=== PATIENT | female | born 1935 | race Caucasian/White ===

== ENCOUNTER 2022-10-20 12:20 | Emergency (ER) | payer MEDICARE, OTHER ==
[2022-10-20] MEDS ORDERED: Sodium Chloride 0.9% 10 ML Syringe FLUSH PRN (12:26)
[2022-10-20 12:59] LABS: BASOPHILS ABSOLUTE AUTO 0.02 K/uL (0.00-0.20); BASOPHILS PERCENT AUTO 0.2 % (0.0-2.0); EOSINOPHILS ABSOLUTE AUTO 0.05 K/uL (0.00-0.50); EOSINOPHILS PERCENT AUTO 0.4 % (0.0-5.0); HEMATOCRIT 44.4 % (34.0-46.0); HEMOGLOBIN 14.8 g/dL (11.7-15.5); LYMPHOCYTES PERCENT AUTO 9.5 % (10.0-50.0); MEAN CORPUSCULAR HEMOGLOBIN 31.2 pg (28.2-33.3); MEAN CORPUSCULAR HGB CONC 33.3 g/dL (31.7-36.0); MEAN CORPUSCULAR VOLUME 93.5 fL (84.0-98.0); MONOCYTES ABSOLUTE AUTO 0.61 K/uL (0.00-1.00); MONOCYTES PERCENT AUTO 5.3 % (2.0-14.0); NEUTROPHILS ABSOLUTE AUTO 9.79 K/uL (1.40-7.00); NEUTROPHILS PERCENT AUTO 84.6 % (45.0-80.0); PLATELET COUNT,PLT 307 K/uL (150-350); RED BLOOD CELL COUNT 4.75 M/uL (3.77-5.09); RED CELL DISTRIBUTION WIDTH 13.7 % (11.2-14.1); WHITE BLOOD CELL COUNT,WBC 11.6 K/uL (4.0-10.2)
[2022-10-20 13:41] LABS: ALANINE AMINOTRANSFERASE,ALT 9 U/L (12-78); ALBUMIN 4.4 g/dL (3.4-5.0); ALKALINE PHOSPHATASE 152 IU/L (46-116); ANION GAP 16.3 meq/L (7-15); ASPARTATE AMNIOTRANSFERASE,AST 16 U/L (15-37); BILIRUBIN TOTAL 0.5 mg/dL (0.2-1.0); BLOOD UREA NITROGEN,BUN 17 mg/dL (7-18); CALCIUM 9.9 mg/dL (8.5-10.1); CARBON DIOXIDE,CO2 22.7 mmol/L (21.0-32.0); CHLORIDE,CL 100 mmol/L (98-107); CREATININE 0.96 mg/dL (0.51-1.17); ESTIMATED GFR 57 mL/min (>=60); GLUCOSE RANDOM 123 mg/dL (70-99); MAGNESIUM 1.8 mg/dL (1.8-2.4); PRO B-TYPE NATRIUR PEPT,BNPPRO 282 pg/mL (0-125); PROTEIN TOTAL,TP 9.4 g/dL (6.4-8.2); SODIUM,NA 139 mmol/L (136-145)
[2022-10-20 14:41] LABS: APPEARANCE,URINE SLIGHTLY CLOUDY; BILIRUBIN,URINE NEGATIVE (NEGATIVE); COLOR,URINE YELLOW; GLUCOSE,URINE NEGATIVE (NEGATIVE); KETONES,URINE TRACE mg/dL (NEGATIVE); LEUKOCYTE ESTERASE,URINE MODERATE (NEGATIVE); NITRITE,URINE POSITIVE (NEGATIVE); OCCULT BLOOD,URINE TRACE-LYSED (NEGATIVE); PH,URINE 6.5 (5.0-9.0); PROTEIN,URINE TRACE mg/dL (NEGATIVE); UROBILINOGEN,URINE 0.2 E.U./dL (0.2-1.0)
[2022-10-20 14:43] LABS: BACTERIA,URINE MANY /HPF (NONE TO FEW); EPITHELIAL CELLS,URINE OCCASIONAL /LPF; MUCUS,URINE NOT SEEN /LPF (NEGATIVE); RBC,URINE 0-5 /HPF; WBC,URINE 50-75 /HPF
[2022-10-20] MEDS: cefTRIAXone 1 GM in Sodium Chloride 0.9% 100 ML IV ONE (15:00)
[2022-10-20] MEDS: Take Home: Nitrofurantoin Monohydrate/Macrocrystalline 100 MG, 6 Cap Pack PO ONE (15:09)
[2022-10-20 16:15] VITALS: BP 158/79; PULSE 92
== END 2022-10-20 15:40 ==
LOC: LL.ED 12:20
DX: R53.1 Weakness (principal); N30.01 Acute cystitis with hematuria
CPT/HCPCS: 36415; 70450; 71045; 80053; 81001; 81003; 83605; 83735; 83880; 84484; 85025; 85379; 87086; 87088; 87186; 93005; 93010; 96365; 99284; 99285-25; A9270-GY; J0696; J3490

== ENCOUNTER 2022-10-22 17:24 | Emergency (ER) | payer MEDICARE, OTHER ==
[2022-10-22 17:49] LABS: BASOPHILS ABSOLUTE AUTO 0.02 K/uL (0.00-0.20); BASOPHILS PERCENT AUTO 0.2 % (0.0-2.0); EOSINOPHILS PERCENT AUTO 0.8 % (0.0-5.0); HEMATOCRIT 39.4 % (34.0-46.0); HEMOGLOBIN 13.2 g/dL (11.7-15.5); LYMPHOCYTES ABSOLUTE AUTO 2.03 K/uL (0.50-3.50); LYMPHOCYTES PERCENT AUTO 16.5 % (10.0-50.0); MEAN CORPUSCULAR HEMOGLOBIN 30.8 pg (28.2-33.3); MEAN CORPUSCULAR HGB CONC 33.5 g/dL (31.7-36.0); MEAN CORPUSCULAR VOLUME 92.1 fL (84.0-98.0); MONOCYTES ABSOLUTE AUTO 0.79 K/uL (0.00-1.00); MONOCYTES PERCENT AUTO 6.4 % (2.0-14.0); NEUTROPHILS PERCENT AUTO 76.1 % (45.0-80.0); PLATELET COUNT,PLT 301 K/uL (150-350); RED BLOOD CELL COUNT 4.28 M/uL (3.77-5.09); RED CELL DISTRIBUTION WIDTH 13.6 % (11.2-14.1); WHITE BLOOD CELL COUNT,WBC 12.3 K/uL (4.0-10.2)
[2022-10-22 18:00] LABS: PTT,PARTIAL THROMBOPLSTIN TIME 26.3 SEC (23.6-29.8)
[2022-10-22 18:05] LABS: ANION GAP 14.1 meq/L (7-15); BLOOD UREA NITROGEN,BUN 17 mg/dL (7-18); CALCIUM 9.3 mg/dL (8.5-10.1); CARBON DIOXIDE,CO2 21.9 mmol/L (21.0-32.0); CHLORIDE,CL 104 mmol/L (98-107); GLUCOSE RANDOM 92 mg/dL (70-99); POTASSIUM,K 3.7 mmol/L (3.5-5.1); SODIUM,NA 140 mmol/L (136-145)
[2022-10-22 18:06] LABS: ESTIMATED GFR 71 mL/min (>=60)
[2022-10-22 20:55] VITALS: BP 138/92; PULSE 90
== END 2022-10-22 18:25 ==
LOC: LL.ED 17:24
DX: R53.1 Weakness (principal)
CPT/HCPCS: 36415; 70450; 80048; 84484; 85025; 85610; 85730; 99284; 99285

== ENCOUNTER 2022-10-29 09:24 | Inpatient (IN) | payer MEDICARE ==
[2022-10-29] MEDS ORDERED: Diclofenac Sodium 1% Gel 100 GM Tube TOP PRN (15:24)
[2022-10-29] MEDS: atorvaSTATin 40 MG Tab PO SCH (21:11)
[2022-10-29] MEDS: Melatonin 3 MG Tab PO SCH (21:12)
[2022-10-29] MEDS: Acetaminophen 325 MG Tab PO PRN (21:12)
[2022-10-30] MEDS: Cholecalciferol (Vitamin D3) 10 MCG Tab PO SCH (07:30)
[2022-10-30] MEDS: Magnesium Chloride 64 MG Tab.ER PO SCH (07:30)
[2022-10-30] MEDS: Clopidogrel 75 MG Tab PO SCH (07:30)
[2022-10-30] MEDS: Levothyroxine 50 MCG Tab PO SCH (07:30)
[2022-10-30] MEDS: Aspirin 81 MG Tab.EC PO SCH (07:30)
[2022-10-30] MEDS: Losartan 50 MG Tab PO SCH (07:30)
[2022-10-30] MEDS: Acetaminophen 325 MG Tab PO PRN (16:44)
[2022-10-30] MEDS: Melatonin 3 MG Tab PO SCH (20:31)
[2022-10-30] MEDS: atorvaSTATin 40 MG Tab PO SCH (20:31)
[2022-10-31] MEDS: Acetaminophen 325 MG Tab PO PRN ×3 (01:17→21:03)
[2022-10-31] MEDS: Clopidogrel 75 MG Tab PO SCH (07:07)
[2022-10-31] MEDS: Levothyroxine 50 MCG Tab PO SCH (07:07)
[2022-10-31] MEDS: Cholecalciferol (Vitamin D3) 10 MCG Tab PO SCH (07:08)
[2022-10-31] MEDS: Losartan 50 MG Tab PO SCH (07:08)
[2022-10-31] MEDS: Aspirin 81 MG Tab.EC PO SCH (07:09)
[2022-10-31] MEDS: Magnesium Chloride 64 MG Tab.ER PO SCH (07:09)
[2022-10-31] MEDS: atorvaSTATin 40 MG Tab PO SCH (21:03)
[2022-10-31] MEDS: Melatonin 3 MG Tab PO SCH (21:03)
[2022-11-01] MEDS: Levothyroxine 50 MCG Tab PO SCH (08:24)
[2022-11-01] MEDS: Magnesium Chloride 64 MG Tab.ER PO SCH (08:24)
[2022-11-01] MEDS: Acetaminophen 325 MG Tab PO PRN ×2 (08:25→20:56)
[2022-11-01] MEDS: Clopidogrel 75 MG Tab PO SCH (08:25)
[2022-11-01] MEDS: Aspirin 81 MG Tab.EC PO SCH (08:25)
[2022-11-01] MEDS: Cholecalciferol (Vitamin D3) 10 MCG Tab PO SCH (08:25)
[2022-11-01] MEDS: Losartan 50 MG Tab PO SCH (08:26)
[2022-11-01] MEDS: Melatonin 3 MG Tab PO SCH (20:56)
[2022-11-01] MEDS: atorvaSTATin 40 MG Tab PO SCH (20:56)
[2022-11-02] MEDS: Acetaminophen 325 MG Tab PO PRN ×2 (02:41→10:07)
[2022-11-02] MEDS: Magnesium Chloride 64 MG Tab.ER PO SCH (07:22)
[2022-11-02] MEDS: Aspirin 81 MG Tab.EC PO SCH (07:22)
[2022-11-02] MEDS: Levothyroxine 50 MCG Tab PO SCH (07:22)
[2022-11-02] MEDS: Losartan 50 MG Tab PO SCH (07:22)
[2022-11-02] MEDS: Clopidogrel 75 MG Tab PO SCH (07:23)
[2022-11-02] MEDS: Cholecalciferol (Vitamin D3) 10 MCG Tab PO SCH (07:23)
[2022-11-02 07:24] VITALS: BP 145/89; PULSE 81
== END 2022-11-02 12:20 | disposition home health service (06) | DRG 57 ==
LOC: LL.MS 11:22
PROVIDERS: ADMIT Emergency Medicine; ATTEND Physician Assistant
DX: I69.354 Hemiplegia and hemiparesis following cerebral infarction affecting left non-dominant side (principal); E78.00 Pure hypercholesterolemia, unspecified; I10 Essential (primary) hypertension; M19.90 Unspecified osteoarthritis, unspecified site; E03.9 Hypothyroidism, unspecified; E83.42 Hypomagnesemia; Z66 Do not resuscitate; Z79.82 Long term (current) use of aspirin; Z79.899 Other long term (current) drug therapy
CPT/HCPCS: 97110-GO; 97110-GP; 97112-GP; 97116-GP; 97161-GP; 97165-GO; 97535-GO; A9270-GY

== ENCOUNTER 2023-07-08 10:10 | Inpatient (IN) | payer MEDICARE, OTHER ==
[2023-07-08] MEDS ORDERED: Melatonin [Melatonin] 5 MG Tablet PO SCH (20:00)
[2023-07-08] MEDS: Melatonin 3 MG Tab ONE (20:52)
[2023-07-09] MEDS: Acetaminophen 500 MG Tab PO PRN (03:48)
[2023-07-09] MEDS: Levothyroxine 50 MCG Tab PO SCH (07:04)
[2023-07-09] MEDS: Magnesium Oxide 400 MG Tab PO SCH (07:28)
[2023-07-09] MEDS: Amoxicillin/Clavulanate K 875-125 MG Tab PO SCH (07:28)
[2023-07-09] MEDS: Aspirin 81 MG Tab.EC PO SCH (07:28)
[2023-07-09] MEDS: Omeprazole 20 MG Cap.CR PO SCH (07:28)
[2023-07-09] MEDS: Clopidogrel 75 MG Tab PO SCH (07:28)
[2023-07-09] MEDS: Losartan 50 MG Tab PO SCH (07:29)
[2023-07-09 07:32] LABS: BASOPHILS ABSOLUTE AUTO 0.02 K/uL (0.00-0.20); BASOPHILS PERCENT AUTO 0.1 % (0.0-2.0); EOSINOPHILS ABSOLUTE AUTO 0.31 K/uL (0.00-0.50); EOSINOPHILS PERCENT AUTO 1.7 % (0.0-5.0); HEMATOCRIT 32.7 % (34.0-46.0); HEMOGLOBIN 10.7 g/dL (11.7-15.5); LYMPHOCYTES ABSOLUTE AUTO 1.94 K/uL (0.50-3.50); LYMPHOCYTES PERCENT AUTO 10.7 % (10.0-50.0); MEAN CORPUSCULAR HEMOGLOBIN 28.8 pg (28.2-33.3); MEAN CORPUSCULAR HGB CONC 32.7 g/dL (31.7-36.0); MEAN CORPUSCULAR VOLUME 88.1 fL (84.0-98.0); MONOCYTES ABSOLUTE AUTO 1.17 K/uL (0.00-1.00); MONOCYTES PERCENT AUTO 6.4 % (2.0-14.0); NEUTROPHILS ABSOLUTE AUTO 14.73 K/uL (1.40-7.00); NEUTROPHILS PERCENT AUTO 81.1 % (45.0-80.0); PLATELET COUNT,PLT 301 K/uL (150-350); RED BLOOD CELL COUNT 3.71 M/uL (3.77-5.09); RED CELL DISTRIBUTION WIDTH 16.7 % (11.2-14.1); WHITE BLOOD CELL COUNT,WBC 18.2 K/uL (4.0-10.2)
[2023-07-09] MEDS: Melatonin 3 MG Tab PO SCH (19:53)
[2023-07-10 07:25] LABS: BASOPHILS ABSOLUTE AUTO 0.02 K/uL (0.00-0.20); BASOPHILS PERCENT AUTO 0.1 % (0.0-2.0); EOSINOPHILS ABSOLUTE AUTO 0.27 K/uL (0.00-0.50); EOSINOPHILS PERCENT AUTO 1.7 % (0.0-5.0); HEMATOCRIT 32.8 % (34.0-46.0); HEMOGLOBIN 10.7 g/dL (11.7-15.5); LYMPHOCYTES ABSOLUTE AUTO 1.68 K/uL (0.50-3.50); LYMPHOCYTES PERCENT AUTO 10.7 % (10.0-50.0); MEAN CORPUSCULAR HEMOGLOBIN 28.6 pg (28.2-33.3); MEAN CORPUSCULAR HGB CONC 32.6 g/dL (31.7-36.0); MEAN CORPUSCULAR VOLUME 87.7 fL (84.0-98.0); MONOCYTES ABSOLUTE AUTO 1.03 K/uL (0.00-1.00); MONOCYTES PERCENT AUTO 6.6 % (2.0-14.0); NEUTROPHILS ABSOLUTE AUTO 12.69 K/uL (1.40-7.00); NEUTROPHILS PERCENT AUTO 80.9 % (45.0-80.0); PLATELET COUNT,PLT 396 K/uL (150-350); RED BLOOD CELL COUNT 3.74 M/uL (3.77-5.09); RED CELL DISTRIBUTION WIDTH 16.2 % (11.2-14.1); WHITE BLOOD CELL COUNT,WBC 15.7 K/uL (4.0-10.2)
[2023-07-10 09:03] LABS: APPEARANCE,URINE SLIGHTLY CLOUDY; BILIRUBIN,URINE NEGATIVE (NEGATIVE); COLOR,URINE YELLOW; GLUCOSE,URINE NEGATIVE (NEGATIVE); KETONES,URINE NEGATIVE (NEGATIVE); LEUKOCYTE ESTERASE,URINE NEGATIVE (NEGATIVE); NITRITE,URINE NEGATIVE (NEGATIVE); OCCULT BLOOD,URINE TRACE-LYSED (NEGATIVE); PROTEIN,URINE 30 mg/dL (NEGATIVE); UROBILINOGEN,URINE 0.2 E.U./dL (0.2-1.0)
[2023-07-10 09:04] LABS: EPITHELIAL CELLS,URINE FEW /LPF; RBC,URINE 0-5 /HPF; WBC,URINE 0-5 /HPF
[2023-07-10 09:05] LABS: BACTERIA,URINE FEW /HPF (NONE TO FEW)
[2023-07-11 07:22] LABS: BASOPHILS ABSOLUTE AUTO 0.02 K/uL (0.00-0.20); BASOPHILS PERCENT AUTO 0.1 % (0.0-2.0); EOSINOPHILS ABSOLUTE AUTO 0.21 K/uL (0.00-0.50); EOSINOPHILS PERCENT AUTO 1.3 % (0.0-5.0); HEMATOCRIT 30.5 % (34.0-46.0); HEMOGLOBIN 9.9 g/dL (11.7-15.5); LYMPHOCYTES ABSOLUTE AUTO 1.21 K/uL (0.50-3.50); LYMPHOCYTES PERCENT AUTO 7.4 % (10.0-50.0); MEAN CORPUSCULAR HEMOGLOBIN 28.5 pg (28.2-33.3); MEAN CORPUSCULAR HGB CONC 32.5 g/dL (31.7-36.0); MEAN CORPUSCULAR VOLUME 87.9 fL (84.0-98.0); MONOCYTES ABSOLUTE AUTO 1.29 K/uL (0.00-1.00); MONOCYTES PERCENT AUTO 7.9 % (2.0-14.0); NEUTROPHILS ABSOLUTE AUTO 13.58 K/uL (1.40-7.00); NEUTROPHILS PERCENT AUTO 83.3 % (45.0-80.0); PLATELET COUNT,PLT 452 K/uL (150-350); RED BLOOD CELL COUNT 3.47 M/uL (3.77-5.09); WHITE BLOOD CELL COUNT,WBC 16.3 K/uL (4.0-10.2)
[2023-07-11] MEDS: Diclofenac Sodium 1% Gel 100 GM Tube TOP PRN (18:22)
[2023-07-12 07:35] LABS: BASOPHILS ABSOLUTE AUTO 0.03 K/uL (0.00-0.20); BASOPHILS PERCENT AUTO 0.2 % (0.0-2.0); EOSINOPHILS ABSOLUTE AUTO 0.13 K/uL (0.00-0.50); EOSINOPHILS PERCENT AUTO 0.9 % (0.0-5.0); HEMATOCRIT 28.3 % (34.0-46.0); HEMOGLOBIN 9.2 g/dL (11.7-15.5); LYMPHOCYTES ABSOLUTE AUTO 1.42 K/uL (0.50-3.50); LYMPHOCYTES PERCENT AUTO 9.7 % (10.0-50.0); MEAN CORPUSCULAR HEMOGLOBIN 28.5 pg (28.2-33.3); MEAN CORPUSCULAR HGB CONC 32.5 g/dL (31.7-36.0); MEAN CORPUSCULAR VOLUME 87.6 fL (84.0-98.0); MONOCYTES ABSOLUTE AUTO 1.38 K/uL (0.00-1.00); MONOCYTES PERCENT AUTO 9.4 % (2.0-14.0); NEUTROPHILS ABSOLUTE AUTO 11.73 K/uL (1.40-7.00); NEUTROPHILS PERCENT AUTO 79.8 % (45.0-80.0); PLATELET COUNT,PLT 493 K/uL (150-350); RED BLOOD CELL COUNT 3.23 M/uL (3.77-5.09); RED CELL DISTRIBUTION WIDTH 15.9 % (11.2-14.1); WHITE BLOOD CELL COUNT,WBC 14.7 K/uL (4.0-10.2)
[2023-07-13 07:39] LABS: APPEARANCE,URINE SLIGHTLY CLOUDY; BILIRUBIN,URINE NEGATIVE (NEGATIVE); COLOR,URINE YELLOW; GLUCOSE,URINE NEGATIVE (NEGATIVE); KETONES,URINE NEGATIVE (NEGATIVE); LEUKOCYTE ESTERASE,URINE SMALL (NEGATIVE); NITRITE,URINE NEGATIVE (NEGATIVE); OCCULT BLOOD,URINE LARGE (NEGATIVE); PROTEIN,URINE 30 mg/dL (NEGATIVE); UROBILINOGEN,URINE 0.2 E.U./dL (0.2-1.0)
[2023-07-13 08:13] LABS: BASOPHILS ABSOLUTE AUTO 0.04 K/uL (0.00-0.20); BASOPHILS PERCENT AUTO 0.3 % (0.0-2.0); EOSINOPHILS ABSOLUTE AUTO 0.17 K/uL (0.00-0.50); EOSINOPHILS PERCENT AUTO 1.2 % (0.0-5.0); HEMATOCRIT 30.5 % (34.0-46.0); HEMOGLOBIN 9.9 g/dL (11.7-15.5); LYMPHOCYTES ABSOLUTE AUTO 1.55 K/uL (0.50-3.50); LYMPHOCYTES PERCENT AUTO 10.6 % (10.0-50.0); MEAN CORPUSCULAR HEMOGLOBIN 28.4 pg (28.2-33.3); MEAN CORPUSCULAR HGB CONC 32.5 g/dL (31.7-36.0); MEAN CORPUSCULAR VOLUME 87.4 fL (84.0-98.0); MONOCYTES ABSOLUTE AUTO 1.19 K/uL (0.00-1.00); MONOCYTES PERCENT AUTO 8.1 % (2.0-14.0); NEUTROPHILS ABSOLUTE AUTO 11.69 K/uL (1.40-7.00); NEUTROPHILS PERCENT AUTO 79.8 % (45.0-80.0); PLATELET COUNT,PLT 690 K/uL (150-350); RED BLOOD CELL COUNT 3.49 M/uL (3.77-5.09); RED CELL DISTRIBUTION WIDTH 15.9 % (11.2-14.1); WHITE BLOOD CELL COUNT,WBC 14.6 K/uL (4.0-10.2)
[2023-07-13 08:28] LABS: BACTERIA,URINE FEW /HPF (NONE TO FEW); EPITHELIAL CELLS,URINE FEW /LPF; RBC,URINE 0-5 /HPF; WBC,URINE 20-30 /HPF
[2023-07-13 08:33] LABS: ALBUMIN 2.3 g/dL (3.4-5.0); ANION GAP 14.1 meq/L (7-15); BILIRUBIN TOTAL 0.4 mg/dL (0.2-1.0); CALCIUM 8.3 mg/dL (8.5-10.1); CARBON DIOXIDE,CO2 22.9 mmol/L (21.0-32.0); CREATININE 0.68 mg/dL (0.51-1.17); EST CRCL DRUG DOSING (CG) 41.87 mL/min; PROTEIN TOTAL,TP 6.2 g/dL (6.4-8.2)
[2023-07-13] MEDS: Potassium Bicarbonate/Cit Ac 20 MEQ Effervescent Tab PO ONE ×2 (09:12→10:38)
[2023-07-13 11:11] LABS: MAGNESIUM 1.6 mg/dL (1.8-2.4); POTASSIUM,K 3.6 mmol/L (3.5-5.1)
[2023-07-14 08:02] LABS: BASOPHILS ABSOLUTE AUTO 0.02 K/uL (0.00-0.20); BASOPHILS PERCENT AUTO 0.2 % (0.0-2.0); EOSINOPHILS ABSOLUTE AUTO 0.18 K/uL (0.00-0.50); EOSINOPHILS PERCENT AUTO 1.5 % (0.0-5.0); HEMATOCRIT 28.3 % (34.0-46.0); HEMOGLOBIN 9.1 g/dL (11.7-15.5); LYMPHOCYTES PERCENT AUTO 9.7 % (10.0-50.0); MEAN CORPUSCULAR HEMOGLOBIN 28.3 pg (28.2-33.3); MEAN CORPUSCULAR HGB CONC 32.2 g/dL (31.7-36.0); MEAN CORPUSCULAR VOLUME 88.2 fL (84.0-98.0); MONOCYTES ABSOLUTE AUTO 0.97 K/uL (0.00-1.00); MONOCYTES PERCENT AUTO 7.9 % (2.0-14.0); NEUTROPHILS ABSOLUTE AUTO 9.94 K/uL (1.40-7.00); NEUTROPHILS PERCENT AUTO 80.7 % (45.0-80.0); PLATELET COUNT,PLT 700 K/uL (150-350); RED BLOOD CELL COUNT 3.21 M/uL (3.77-5.09); RED CELL DISTRIBUTION WIDTH 15.8 % (11.2-14.1); WHITE BLOOD CELL COUNT,WBC 12.3 K/uL (4.0-10.2)
[2023-07-14 08:27] LABS: ALBUMIN 2.1 g/dL (3.4-5.0); BILIRUBIN TOTAL 0.3 mg/dL (0.2-1.0); CALCIUM 8.2 mg/dL (8.5-10.1); CARBON DIOXIDE,CO2 24.9 mmol/L (21.0-32.0); CREATININE 0.63 mg/dL (0.51-1.17); EST CRCL DRUG DOSING (CG) 45.19 mL/min; POTASSIUM,K 3.3 mmol/L (3.5-5.1); PROTEIN TOTAL,TP 5.8 g/dL (6.4-8.2)
[2023-07-14 08:31] LABS: ANION GAP 12.4 meq/L (7-15)
[2023-07-14] MEDS: Magnesium Oxide 400 MG Tab PO ONE (14:12)
[2023-07-14] MEDS: Potassium Bicarbonate/Cit Ac 20 MEQ Effervescent Tab PO ONE ×2 (14:12→20:22)
[2023-07-14] MEDS: Magnesium Oxide 400 MG Tab PO SCH (19:15)
[2023-07-15 07:36] LABS: BASOPHILS ABSOLUTE AUTO 0.03 K/uL (0.00-0.20); BASOPHILS PERCENT AUTO 0.2 % (0.0-2.0); EOSINOPHILS ABSOLUTE AUTO 0.19 K/uL (0.00-0.50); EOSINOPHILS PERCENT AUTO 1.4 % (0.0-5.0); HEMOGLOBIN 10.5 g/dL (11.7-15.5); LYMPHOCYTES ABSOLUTE AUTO 2.11 K/uL (0.50-3.50); LYMPHOCYTES PERCENT AUTO 15.1 % (10.0-50.0); MEAN CORPUSCULAR HEMOGLOBIN 28.2 pg (28.2-33.3); MEAN CORPUSCULAR HGB CONC 31.8 g/dL (31.7-36.0); MEAN CORPUSCULAR VOLUME 88.7 fL (84.0-98.0); MONOCYTES ABSOLUTE AUTO 0.99 K/uL (0.00-1.00); MONOCYTES PERCENT AUTO 7.1 % (2.0-14.0); NEUTROPHILS ABSOLUTE AUTO 10.66 K/uL (1.40-7.00); NEUTROPHILS PERCENT AUTO 76.2 % (45.0-80.0); PLATELET COUNT,PLT 907 K/uL (150-350); RED BLOOD CELL COUNT 3.72 M/uL (3.77-5.09)
[2023-07-15 07:55] LABS: ALBUMIN 2.6 g/dL (3.4-5.0); ANION GAP 8.5 meq/L (7-15); BILIRUBIN TOTAL 0.4 mg/dL (0.2-1.0); CALCIUM 8.7 mg/dL (8.5-10.1); CARBON DIOXIDE,CO2 25.5 mmol/L (21.0-32.0); CREATININE 0.71 mg/dL (0.51-1.17); EST CRCL DRUG DOSING (CG) 39.09 mL/min; POTASSIUM,K 4.4 mmol/L (3.5-5.1); PROTEIN TOTAL,TP 6.7 g/dL (6.4-8.2)
[2023-07-15] MEDS: cefTRIAXone 1 GM Vial IM ONE (14:08)
[2023-07-15] MEDS: Magnesium Oxide 400 MG Tab PO ONE (14:09)
[2023-07-15] MEDS: Lidocaine 1% 5 ML VIAL ONE (14:22)
[2023-07-16 08:05] VITALS: BP 148/87; PULSE 98
[2023-07-16 09:19] LABS: BASOPHILS ABSOLUTE AUTO 0.03 K/uL (0.00-0.20); BASOPHILS PERCENT AUTO 0.2 % (0.0-2.0); EOSINOPHILS ABSOLUTE AUTO 0.24 K/uL (0.00-0.50); EOSINOPHILS PERCENT AUTO 1.7 % (0.0-5.0); HEMATOCRIT 33.2 % (34.0-46.0); HEMOGLOBIN 10.6 g/dL (11.7-15.5); LYMPHOCYTES ABSOLUTE AUTO 2.18 K/uL (0.50-3.50); LYMPHOCYTES PERCENT AUTO 15.8 % (10.0-50.0); MEAN CORPUSCULAR HEMOGLOBIN 28.7 pg (28.2-33.3); MEAN CORPUSCULAR HGB CONC 31.9 g/dL (31.7-36.0); MONOCYTES ABSOLUTE AUTO 1.08 K/uL (0.00-1.00); MONOCYTES PERCENT AUTO 7.8 % (2.0-14.0); NEUTROPHILS ABSOLUTE AUTO 10.24 K/uL (1.40-7.00); NEUTROPHILS PERCENT AUTO 74.5 % (45.0-80.0); PLATELET COUNT,PLT 996 K/uL (150-350); RED BLOOD CELL COUNT 3.69 M/uL (3.77-5.09); WHITE BLOOD CELL COUNT,WBC 13.8 K/uL (4.0-10.2)
[2023-07-16 09:37] LABS: ALBUMIN 2.6 g/dL (3.4-5.0); ANION GAP 11.7 meq/L (7-15); BILIRUBIN TOTAL 0.3 mg/dL (0.2-1.0); CALCIUM 8.3 mg/dL (8.5-10.1); CARBON DIOXIDE,CO2 24.3 mmol/L (21.0-32.0); CREATININE 0.83 mg/dL (0.51-1.17); EST CRCL DRUG DOSING (CG) 33.44 mL/min; POTASSIUM,K 3.8 mmol/L (3.5-5.1); PROTEIN TOTAL,TP 6.8 g/dL (6.4-8.2)
[2023-07-16] MEDS ORDERED: Magnesium Oxide 400 MG Tab ONE (12:06)
[2023-07-16] MEDS: Magnesium Oxide 400 MG Tab PO SCH (12:21)
[2023-07-16 12:45] LABS: APPEARANCE,URINE SLIGHTLY CLOUDY; BILIRUBIN,URINE NEGATIVE (NEGATIVE); COLOR,URINE DARK YELLOW; GLUCOSE,URINE NEGATIVE (NEGATIVE); KETONES,URINE NEGATIVE (NEGATIVE); LEUKOCYTE ESTERASE,URINE SMALL (NEGATIVE); NITRITE,URINE NEGATIVE (NEGATIVE); OCCULT BLOOD,URINE LARGE (NEGATIVE); PH,URINE 7.5 (5.0-9.0); PROTEIN,URINE 30 mg/dL (NEGATIVE); UROBILINOGEN,URINE 0.2 E.U./dL (0.2-1.0)
[2023-07-16 12:46] LABS: BACTERIA,URINE FEW /HPF (NONE TO FEW)
[2023-07-16] MEDS: cefTRIAXone 1 GM Vial IM ONE (14:41)
[2023-07-16] MEDS: Lidocaine 1% 5 ML VIAL INJECT ONE (14:41)
== END 2023-07-16 15:10 | disposition home or self-care (01) | DRG 948 ==
LOC: LL.MS 17:30
PROVIDERS: ADMIT Physician Assistant; ATTEND Emergency Medicine
DX: R53.81 Other malaise (principal); E87.6 Hypokalemia; E83.42 Hypomagnesemia; D72.829 Elevated white blood cell count, unspecified; E03.9 Hypothyroidism, unspecified; M19.90 Unspecified osteoarthritis, unspecified site; E78.00 Pure hypercholesterolemia, unspecified; I10 Essential (primary) hypertension; H54.7 Unspecified visual loss; Z93.3 Colostomy status; Z96.649 Presence of unspecified artificial hip joint; Z79.82 Long term (current) use of aspirin; Z79.02 Long term (current) use of antithrombotics/antiplatelets; Z79.2 Long term (current) use of antibiotics; Z79.899 Other long term (current) drug therapy; Z90.89 Acquired absence of other organs; Z86.73 Personal history of transient ischemic attack (TIA), and cerebral infarction without residual deficits; Z98.890 Other specified postprocedural states; Z90.710 Acquired absence of both cervix and uterus
CPT/HCPCS: 36415; 80053; 81001; 83735; 84132; 85025; 87086; 97110-GP; 97162-GP; 97165-GO; 97530-GP; 97535-GO; 99306; 99315; A9270-GY; J0696; J3490

== ENCOUNTER 2023-07-28 09:09 | Emergency (ER) | payer MEDICARE, OTHER ==
[2023-07-28 10:05] LABS: ALBUMIN 2.8 g/dL (3.4-5.0); ANION GAP 9.8 meq/L (7-15); BILIRUBIN TOTAL 0.3 mg/dL (0.2-1.0); CALCIUM 8.7 mg/dL (8.5-10.1); CARBON DIOXIDE,CO2 27.3 mmol/L (21.0-32.0); CREATININE 0.79 mg/dL (0.51-1.17); EST CRCL DRUG DOSING (CG) 36.04 mL/min; POTASSIUM,K 3.1 mmol/L (3.5-5.1); PROTEIN TOTAL,TP 6.3 g/dL (6.4-8.2)
[2023-07-28 10:13] LABS: BASOPHILS ABSOLUTE AUTO 0.02 K/uL (0.00-0.20); BASOPHILS PERCENT AUTO 0.2 % (0.0-2.0); EOSINOPHILS ABSOLUTE AUTO 0.37 K/uL (0.00-0.50); EOSINOPHILS PERCENT AUTO 3.7 % (0.0-5.0); HEMOGLOBIN 8.9 g/dL (11.7-15.5); LYMPHOCYTES ABSOLUTE AUTO 1.74 K/uL (0.50-3.50); LYMPHOCYTES PERCENT AUTO 17.4 % (10.0-50.0); MEAN CORPUSCULAR HEMOGLOBIN 29.3 pg (28.2-33.3); MEAN CORPUSCULAR HGB CONC 31.8 g/dL (31.7-36.0); MEAN CORPUSCULAR VOLUME 92.1 fL (84.0-98.0); MONOCYTES ABSOLUTE AUTO 0.96 K/uL (0.00-1.00); MONOCYTES PERCENT AUTO 9.6 % (2.0-14.0); NEUTROPHILS PERCENT AUTO 69.1 % (45.0-80.0); PLATELET COUNT,PLT 372 K/uL (150-350); RED BLOOD CELL COUNT 3.04 M/uL (3.77-5.09); RED CELL DISTRIBUTION WIDTH 17.7 % (11.2-14.1)
[2023-07-28 10:46] VITALS: BP 162/85; PULSE 68
[2023-07-28] MEDS: Potassium Bicarbonate/Cit Ac 20 MEQ Effervescent Tab PO ONE (10:47)
== END 2023-07-28 11:44 | disposition home or self-care (01) ==
LOC: LL.ED 09:09
DX: L24.B1 Irritant contact dermatitis related to digestive stoma or fistula (principal); E87.6 Hypokalemia; I10 Essential (primary) hypertension; E03.9 Hypothyroidism, unspecified; E78.00 Pure hypercholesterolemia, unspecified; Z79.899 Other long term (current) drug therapy; Z79.82 Long term (current) use of aspirin; Z86.19 Personal history of other infectious and parasitic diseases
CPT/HCPCS: 36415; 80053; 85025; 99284; A9270